=== PATIENT | male | born 1935 ===

== ENCOUNTER 2020-01-31 23:41 | Observation (INO) | payer OTHER ==
[~2020-01-31] VITALS: Ht 182.9 cm; Wt 68.6 kg
[2020-02-01] MEDS ORDERED: MORPHINE SULFATE 4 MG/ML, 1ML IVPush PRN
[2020-02-01] MEDS ORDERED: SODIUM CHLORIDE FLUSH 10ML SYR IVF ONE
[2020-02-01] MEDS ORDERED: ONDANSETRON 2MG/ML, 2ML IVPush ONE
[2020-02-01] MEDS ORDERED: KETOROLAC 30 MG/1 ML IVPush ONE
[2020-02-01] MEDS ORDERED: MORPHINE SULFATE 4 MG/ML, 1ML ONE (00:28)
[2020-02-01] MEDS ORDERED: ONDANSETRON 2MG/ML, 2ML ONE (00:28)
[2020-02-01] MEDS ORDERED: PLEASE ENTER ALLERGIES MC SCH (00:30)
[2020-02-01 00:37] LABS: HCT (SEDRATE) 38.7 % (39.2-51.8)
[2020-02-01 00:38] LABS: BASOPHILS # (AUTO) 0.23 x10^3/uL (0-0.1); BASOPHILS % (AUTO) 2 % (0-1); EOSINOPHILS # (AUTO) 0.73 x10^3/uL (0-0.4); EOSINOPHILS % (AUTO) 6 % (1-7); LYMPHOCYTES # (AUTO) 1.76 x10^3/uL (1-3.4); LYMPHOCYTES % (AUTO) 13 % (22-44); MD NO; MEAN CORPUSCULAR HEMOGLOBIN 30.3 pg (27.5-34.5); MEAN CORPUSCULAR HGB CONC 32.1 g/dL (33.2-36.2); MEAN PLATELET VOLUME 7.7 fL (7.4-10.4); MONOCYTES # (AUTO) 1.19 x10^3/uL (0.2-0.8); MONOCYTES % (AUTO) 9 % (2-9); NEUTROPHILS # (AUTO) 9.21 x10^3/uL (1.8-6.8); NEUTROPHILS % (AUTO) 70 % (42-75); PLATELET COUNT 328 x10^3/uL (130-400)
[2020-02-01 00:47] LABS: ALANINE AMINOTRANSFERASE 26 U/L (12-78); ALBUMIN 3.1 g/dL (3.4-5.0); ANION GAP 7 mmol/L (5-15); CALCIUM 8.5 mg/dL (8.5-10.1); CHLORIDE 101 mmol/L (98-107); CREATININE 1.19 mg/dL (0.7-1.3)
[2020-02-01] MEDS ORDERED: KETOROLAC 30 MG/1 ML ONE (00:47)
[2020-02-01 00:54] LABS: ALKALINE PHOSPHATASE 107 U/L (45-117); BILIRUBIN,TOTAL 1.5 mg/dL (0.2-1.0); TOTAL PROTEIN 7.7 g/dL (6.4-8.2); TROPONIN I < 0.015 ng/mL (0.000-0.045)
[2020-02-01] MEDS ORDERED: LABETALOL 20 MG/4 ML ONE ×2 (01:14→03:04)
--- NOTE | 2020-02-01 01:17 | NUR ---
LATE ENTRY SUMMARY NOTE: PT WAS [place] [facility] [place], "SOMEONE THERE CALLED, I DON'T KNOW WHY." PT WAS DECONTAMINATED PRIOR TO BE TAKEN TO ROOM. PT IMMEDIATELY CONNECTED TO CARDIAC, BP AND O2 MONITORS. PT DENIED ANY CARDIAC HX OR COMPLAINTS. EKG DONE BY THIS RN, AND MD MORA VIEWED. EKG UNABLE TO BE PRINTED SO REPEATED. LABS DRAWN AND LINE STARTED. PT MEDICATED TO MAR AND POSITIONED TO COMFORT. PT'S BP NOW 130S/60S AFTER BEING MEDICATED. PT CONVERSING WITH STAFF. BEDRAILS UP X2, CALL LIGHT IN REACH. POTASSIUM ORDERED FROM PHARMACY AT 0111. PT TO IMAGING AT THIS TIME.
[2020-02-01] MEDS ORDERED: LABETALOL 5MG/ML, 20ML IVPush ONE (01:30)
[2020-02-01] MEDS ORDERED: POTASSIUM CHLORIDE 40 MEQ in SODIUM CHLORIDE 0.9% 500 ML IV ONE (01:30)
[2020-02-01] MEDS ORDERED: OMNIPAQUE 350 MG/ML, 100ML BOTTLE ONE (01:46)
[2020-02-01] MEDS ORDERED: LIDOCAINE 1%, 2ML INFIL ONE (02:30)
[2020-02-01] MEDS ORDERED: LIDOCAINE-MPF 1%, 5ML ONE (02:36)
--- NOTE | 2020-02-01 03:08 | NUR ---
CONFIRMED WITH PHARMACY LABETALOL COMPATIBLE WITH K DRIP.
--- NOTE | 2020-02-01 03:21 | NUR ---
PT LAYING IN BED, NADN, RESPIRATIONS EVEN AND UNLABORED. WILL CONTINUE TO MONITOR.
[2020-02-01 03:24] LABS: GLUCOSE, CSF 58 mg/dL (40-80); TOTAL PROTEIN,CSF 32 mg/dL (15-45)
--- NOTE | 2020-02-01 03:51 | NUR ---
FIRST ATTEMPT TO CALL REPORT.
--- NOTE | 2020-02-01 04:02 | NUR ---
REPORT GIVEN TO DALIA CUNNINGHAM. PT REMAINS SLEEPING, RESPIRATIONS EVEN AND UNLABORED.
--- NOTE | 2020-02-01 04:46 | NUR ---
ADMITTING MD TO BEDSIDE AT 0430, PT INTERACTING APPROPRIATELY.
[2020-02-01] MEDS ORDERED: GABAPENTIN 300 MG CAPSULE PO PRN (05:00)
[2020-02-01] MEDS ORDERED: LABETALOL 5MG/ML, 20ML IVPush PRN (05:00)
[2020-02-01] MEDS ORDERED: PROMETHAZINE 25 MG/ML, 1ML IM PRN (05:00)
[2020-02-01] MEDS ORDERED: MELATONIN 5 MG TABLET PO PRN (05:00)
[2020-02-01] MEDS ORDERED: POTASSIUM CHLORIDE 20 MEQ TAB.ER.PRT PO ONE (05:00)
[2020-02-01] MEDS ORDERED: ACETAMINOPHEN 325 MG TABLET PO PRN (05:00)
[2020-02-01 05:08] VITALS: BP 164/85
[2020-02-01] MEDS: HEPARIN 5,000 UNITS/ML, 1ML SQ SCH ×3 (05:46→20:20)
[2020-02-01] MEDS: FUROSEMIDE 20 MG TABLET PO SCH ×2 (07:30→08:41)
[2020-02-01 07:46] VITALS: BP 147/80
[2020-02-01] MEDS ORDERED: LISINOPRIL 5 MG TABLET PO SCH (09:00)
[2020-02-01 13:01] VITALS: BP 146/77
[2020-02-01 18:31] LABS: AMPHETAMINE SCREEN, URINE Negative (Negative); BARBITURATE SCREEN, URINE Negative (Negative); BENZODIAZEPINE SCREEN, URINE Negative (Negative); CANNABINOID SCREEN, URINE Negative (Negative); COCAINE SCREEN, URINE Negative (Negative); METHADONE SCREEN, URINE Negative (Negative); OPIATE SCREEN, URINE Positive (Negative)
[2020-02-01 20:26] VITALS: BP 159/86
[2020-02-02 03:09] VITALS: BP 181/92
[2020-02-02] MEDS: HEPARIN 5,000 UNITS/ML, 1ML SQ SCH (05:00)
[2020-02-02 06:07] LABS: BASOPHILS # (AUTO) 0.02 x10^3/uL (0-0.1); BASOPHILS % (AUTO) 0 % (0-1); EOSINOPHILS % (AUTO) 13 % (1-7); LYMPHOCYTES # (AUTO) 0.86 x10^3/uL (1-3.4); LYMPHOCYTES % (AUTO) 13 % (22-44); MD NO; MEAN CORPUSCULAR HEMOGLOBIN 30.3 pg (27.5-34.5); MEAN CORPUSCULAR HGB CONC 32.5 g/dL (33.2-36.2); MEAN PLATELET VOLUME 8.6 fL (7.4-10.4); MONOCYTES # (AUTO) 0.36 x10^3/uL (0.2-0.8); MONOCYTES % (AUTO) 5 % (2-9); NEUTROPHILS # (AUTO) 4.58 x10^3/uL (1.8-6.8); NEUTROPHILS % (AUTO) 68 % (42-75); PLATELET COUNT 213 x10^3/uL (130-400); RED BLOOD COUNT 3.49 x10^6/uL (4.38-5.82); RED CELL DISTRIBUTION WIDTH 14.4 % (9.4-14.8)
[2020-02-02 06:12] LABS: ANION GAP 6 mmol/L (5-15); CALCIUM 8.3 mg/dL (8.5-10.1); CHLORIDE 107 mmol/L (98-107); CREATININE 1.05 mg/dL (0.7-1.3)
[2020-02-02 06:15] LABS: CHOL/HDL RATIO 2.9; CHOLESTEROL, TOTAL 95 mg/dL (140-239); HDL CHOL % 35 % (26-37); HDL CHOLESTEROL (DIRECT) 33 mg/dL (40-60); LDL CHOLESTEROL,CALCULATED 50 mg/dL (54-169); LDL/HDL RATIO 1.5 (0.5-3.0); TRIGLYCERIDES 60 mg/dL (50-200); VLDL CHOLESTEROL 12 mg/dL (0-25)
[2020-02-02 07:27] VITALS: BP 162/79
[2020-02-02] MEDS ORDERED: POTASSIUM CHLORIDE 20 MEQ TAB.ER.PRT PO ONE ×2 (08:30→10:30)
[2020-02-02] MEDS ORDERED: LISINOPRIL 10 MG TABLET PO SCH (09:00)
[2020-02-02] MEDS ORDERED: SENNA/DOCUSATE TABLET ONE (09:12)
[2020-02-02] MEDS ORDERED: BISACODYL 10 MG SUPP PR PRN (09:30)
[2020-02-02] MEDS ORDERED: SENNA/DOCUSATE TABLET PO PRN (09:30)
== END 2020-02-02 11:36 | disposition left against medical advice (07) ==
LOC: ED 02-01 04:07 → EDIP 02-01 04:09 → INTOOBSV 02-01 04:09 → 4WST 02-01 04:55
PROVIDERS: ADMIT Family Medicine; ATTEND Hospitalist
DX: I11.0 Hypertensive heart disease with heart failure (principal); I50.43 Acute on chronic combined systolic (congestive) and diastolic (congestive) heart failure; E87.6 Hypokalemia; I16.0 Hypertensive urgency; M48.02 Spinal stenosis, cervical region; B88.8 Other specified infestations; D72.829 Elevated white blood cell count, unspecified; D64.9 Anemia, unspecified; F17.210 Nicotine dependence, cigarettes, uncomplicated; E86.0 Dehydration; M47.812 Spondylosis without myelopathy or radiculopathy, cervical region; Z79.899 Other long term (current) drug therapy; Z63.8 Other specified problems related to primary support group
CPT/HCPCS: 36415; 70450; 70491; 71045; 72125; 80048; 80053; 80061; 80307; 82945; 83735; 83880; 84132; 84157; 84443; 84484; 85025; 85651; 86140; 87040; 87070; 87205; 87252; 89051; 93005; 93306; 93970; 96365; 96366; 96372; 96375; 96376; 99291; G0378; J1644; J1885; J2270; J2405; J3480; J7040; Q9967